=== PATIENT | male | born 1995 | race Caucasian/White ===

== ENCOUNTER 2016-09-29 22:48 | Emergency (ER) | payer BC, OTHER ==
[~2016-09-29] VITALS: Ht 160 cm; Wt 77.8 kg
[~2016-09-29 22:48] MED LIST: AMINO ACID; MULT-506 PO
[2016-09-29 22:53] VITALS: TEMP 36.2; Ht 160 cm; Wt 77.8 kg
[2016-09-29] MEDS ORDERED: AMINTAB13 PO (23:31)
[2016-09-29] MEDS ORDERED: PROPARACAINE HCL 0.5% OP SOLN 15 ML BTL ONE (23:41)
[2016-09-29] MEDS ORDERED: CIPROFLOXACIN HCL 0.3% OP SOLN 2.5 ML BTL OP STA (23:49)
[2016-09-30 00:25] VITALS: BP 122/81; PULSE 86; O2SAT 99
--- NOTE | 2016-09-30 04:11 | EMERGENCY ROOM VISIT NOTE ---
ED Visit Note First contact with patient: 23:30 CHIEF COMPLAINT: Red, irritated eye HISTORY OF PRESENT ILLNESS: This 21 yo presents to the emergency department with family complaining of redness in the left eye which has gradually increased today. Mild constant pain, irritating in nature, which is rated as 2/ 10. There is yellow discharge from the left eye and the lids are crusted in the morning. No difficulty with vision. The patient does not wear contacts. There is no known trauma to the eye. The patient has not had any other upper respiratory symptoms. The right eye is normal. The patient does not have a foreign body sensation. No headache, rash, nausea or vomiting. REVIEW OF SYSTEMS: A 6 system review of systems was completed with positives and pertinent negatives in the HPI. ALLERGIES:sulfa MEDICATIONS:none PMH: none SOCIAL HISTORY: No drug use PHYSICAL EXAM: Vital Signs: Reviewed Nurse's notes, Temperature afebrile. GENERAL: Pleasant male, in no acute distress, well-developed, well-nurished. SKIN: Warm, dry. No cyanosis. No petechia. EYES: Both pupils are equal round and reactive to light and accomadation, EOMs intact. There is yellow discharge in the left eye and moderate injection. There is no foreign body of the eyelid with lid eversion. Fundoscopic exam reveals no hemorrages, papiledema, or other abnormalities. No foreign body on the cornea, no hyphema. No uptake of flourescein visible with UV light. No corneal abrasion and no corneal ulcer. Visual Accuity is 20/50 right and 20/50 left with correction. EMERGENCY DEPARTMENT COURSE: I examined the patient. A slit lamp exam was performed and is as described above. Two drops of Ciloxin were put in the left eye and the patient was instructed as noted below. The patient was discharged home in good condition. Differential diagnosis includes conjunctivitis, corneal abrasion, iritis, foreign body, allergic reaction and other etiologies were considered. DIAGNOSIS: Acute conjunctivitis DISCHARGE INSTRUCTIONS: Ciloxan 2 drops into affected eye every 2 hrs x 2 days then 4 times a day for 5 days for a total of 7 days. No contacts for 7 days. Do not rub your eyes, and wash hands frequently. Cool compress for discomfort. Avoid irritants like smoke, wind, and sun. Throw out eye cosmetics. Acetaminophen(Tylenol) may be used for fever or pain. Use 1000mg every six hours as needed. Avoid using more than 3000mg in a 24 hour period. AND/OR Ibuprofen(Motrin, Advil) may be used for fever or pain. Use 600mg every six hours as needed. Take with food. Avoid using more than 2400mg in a 24 hour period. Do not use 2400mg per day for more than three consecutive days without physician direction. Prolonged inappropriate use can lead to stomach upset or ulcers. Follow up with family doctor or eye doctor if symptoms do not resolve in 7 days. Return sooner for any change in vision, eye pain, worsening signs or symptoms or as needed. Current/Historical Medications Scheduled Amino Acids (Amino Acids Complex), 1 TAB PO DAILY Multivitamin (Multivitamin), 1 TAB PO DAILY Allergies Uncoded Allergies: SULFA (Allergy, Unknown, 09/21/02) Vital Signs Date Time Temp Pulse Resp B/P Pulse Ox O2 Delivery O2 Flow Rate FiO2 09/30/16 00:25 86 16 122/81 99 09/29/16 22:53 36.2 57 18 129/67 98 Room Air Medications Administered Medications (Trade) Dose Ordered Sig/Mark Route Start Time Stop Time Status Last Admin Dose Admin Ciprofloxacin HCl (Ciprofloxacin 0.3% Op Soln) 2 drops NOW STAT OP 09/29/16 23:49 09/29/16 23:50 DC 09/30/16 00:20 2 DROPS Departure Information Impression Primary Impression: Conjunctivitis of left eye Dispostion Home / Self-Care Condition GOOD Forms WORK / SCHOOL INSTRUCTIONS, HOME CARE DOCUMENTATION FORM, Days off work : 1 Work Instructions, IMPORTANT VISIT INFORMATION Patient Instructions Conjunctivitis, My [facility] Additional Instructions Ciloxan 2 drops into affected eye every 2 hrs while awake x 2 days then every 4 hrs for 5 days for a total of 7 days. No contacts for 10 days. Do not rub your eyes, and wash hands frequently. Cool compress for discomfort. Avoid irritants like smoke, wind, and sun. Throw out eye cosmetics. Follow up with family doctor or eye doctor if symptoms do not start to improve in 48 hrs or if not resolved in 7 days. Return sooner for any change in vision.
== END 2016-09-30 00:25 | disposition home or self-care (01) ==
LOC: C.EDB 22:50 → C.EDA 09-30 00:25
DX: H10.32 Unspecified acute conjunctivitis, left eye (principal); Z88.2 Allergy status to sulfonamides

== ENCOUNTER 2016-12-18 23:33 | Emergency (ER) | payer BC, OTHER ==
[~2016-12-18] VITALS: Ht 160 cm; Wt 82.0 kg
[~2016-12-18 23:33] MED LIST changes: -AMINO ACID; +AMINTAB13 PO
[2016-12-18 23:36] VITALS: TEMP 36.7; Ht 160 cm; Wt 82.0 kg
[2016-12-18] MEDS ORDERED: CIPROFLOXACIN HCL 0.3% OP SOLN 2.5 ML BTL OP STA (23:53)
[2016-12-19] MEDS ORDERED: CIPROFLOXACIN HCL 0.3% OP SOLN 2.5 ML BTL OP ONE
--- NOTE | 2016-12-19 00:03 | EMERGENCY ROOM VISIT NOTE ---
ED Visit Note First contact with patient: 23:40 CHIEF COMPLAINT: Red, irritated eye HISTORY OF PRESENT ILLNESS: This 21 yo presents to the emergency department with family complaining of redness in both eyes which has gradually increased past few days. Mild constant pain, itchy in nature, which is rated as 3/10. There is yellow discharge from the thighs and the lids are crusted in the morning. No difficulty with vision. The patient does not contacts. There is no known trauma to the eye. The patient has had any other upper respiratory symptoms. The patient denies having a foreign body sensation. No headache, rash , nausea or vomiting. Tetanus is current. REVIEW OF SYSTEMS: A 6 system review of systems was completed with positives and pertinent negatives in the HPI. ALLERGIES: Sulfa MEDICATIONS: None PMH: None SOCIAL HISTORY: No drug use PHYSICAL EXAM: Vital Signs: Reviewed Nurse's notes, Temperature afebrile. GENERAL: Pleasant male, in no acute distress, well-developed, well-nurished. SKIN: Warm, dry. No cyanosis. No petechia. EYES: Both pupils are equal round and reactive to light and accomadation, EOMs intact. There is yellow discharge in both eyes and moderate injection. There is no foreign body of the eyelid with lid eversion. Fundoscopic exam reveals no hemorrages, papiledema, or other abnormalities. No foreign body on the cornea, no hyphema. No uptake of flourescein visible with UV light. No corneal abrasion and no corneal ulcer. Visual Accuity reviewed from nursing EMERGENCY DEPARTMENT COURSE: I examined the patient. A eye exam was performed and is as described above. Two drops of Ciloxin were put in the both eyes and the patient was instructed as noted below. Patient was counseled on proper eye care and on how contagious this is. He verbalized understanding of this. The patient was discharged home in good condition. Differential diagnosis includes conjunctivitis, corneal abrasion, iritis, foreign body, allergic reaction and other etiologies were considered. DIAGNOSIS: Acute conjunctivitis DISCHARGE INSTRUCTIONS: Ciloxan 2 drops into affected eye every 2 hrs x 2 days then 4 times a day for 5 days for a total of 7 days. No contacts for 7 days. Do not rub your eyes, and wash hands frequently. Cool compress for discomfort. Avoid irritants like smoke, wind, and sun. Throw out eye cosmetics. Acetaminophen(Tylenol) may be used for fever or pain. Use 1000mg every six hours as needed. Avoid using more than 3000mg in a 24 hour period. AND/OR Ibuprofen(Motrin, Advil) may be used for fever or pain. Use 600mg every six hours as needed. Take with food. Avoid using more than 2400mg in a 24 hour period. Do not use 2400mg per day for more than three consecutive days without physician direction. Prolonged inappropriate use can lead to stomach upset or ulcers. Follow up with family doctor or eye doctor if symptoms do not resolve in 7 days. Return sooner for any change in vision, eye pain, worsening signs or symptoms or as needed. Current/Historical Medications Scheduled Amino Acids (Amino Acids Complex), 1 TAB PO DAILY Multivitamin (Multivitamin), 1 TAB PO DAILY Allergies Uncoded Allergies: SULFA (Allergy, Unknown, 09/21/02) Vital Signs Date Time Temp Pulse Resp B/P Pulse Ox O2 Delivery O2 Flow Rate FiO2 12/18/16 23:36 36.7 53 18 115/74 97 Room Air Departure Information Impression Primary Impression: Acute conjunctivitis of both eyes Dispostion Home / Self-Care Condition GOOD Forms WORK / SCHOOL INSTRUCTIONS, HOME CARE DOCUMENTATION FORM, Days off work : 1 Work Instructions, IMPORTANT VISIT INFORMATION Patient Instructions Conjunctivitis, My [facility] Additional Instructions Ciloxan 2 drops into affected eye every 2 hrs while awake x 2 days then every 4 hrs for 5 days for a total of 7 days. No contacts for 10 days. Do not rub your eyes, and wash hands frequently. Cool compress for discomfort. Avoid irritants like smoke, wind, and sun. No work for 24 hours as you are highly contagious. Follow up with family doctor or eye doctor if symptoms do not start to improve in 48 hrs or if not resolved in 7 days. Return sooner for any change in vision.
[2016-12-19 00:14] VITALS: BP 128/72; PULSE 78; O2SAT 98
--- NOTE | 2016-12-22 12:10 | Pharmacy Progress Note ---
ED Pharmacist Progress Note Date of Service: December 22, 2016. Patient's mother presented to the ER today because she had run out of the ciprofloxacin eye drops that they were using to treat the patient's bilateral bacterial conjunctivitis. He was seen on 12/18/16 and started the Rx on 12/19 and was to complete a full 7 day treatment course. Thus far he has completed 3 days and needs 4 more days supply. He was discharged from the ED with a single 2.5mL bottle. He has been improving with the treatment per mother and patient. He did have a little eye crusting noted on his eyelashes in the waiting room, but no drainage or redness noted. Reviewed case w/ Dr Freeman. A written Rx for 5mL bottle of Ciprofloxacin 0.3% Ophthalmic solution 2 drops in each eye Q 4 hrs x 4 more days to complete the treatment course. No refills. was given to the patient's mother in the ER waiting room.
== END 2016-12-19 00:16 | disposition home or self-care (01) ==
LOC: C.EDB 23:34 → C.EDA 12-19 00:16
DX: H10.33 Unspecified acute conjunctivitis, bilateral (principal)